=== PATIENT | male | born 1995 | race Caucasian/White ===

== ENCOUNTER 2022-05-27 03:37 | Observation (INO) ==
[2022-05-27] MEDS ORDERED: SODIUM CHLORIDE 0.9% 1,000 ML IV STA (04:13)
[2022-05-27 04:19] LABS: Basophils # 0.1 10*3/uL (0.0-0.2); Basophils % 0.4 % (0.0-0.8); Eosinophils # 0.2 10*3/uL (0.0-0.87); Eosinophils % 1.4 % (0.00-10.9); Hematocrit 48.2 VOL% (42.0-52.0); Immature Granulocytes % 0.4 %; Immature Granulocytes Absolute 0.05 #; Lymphocytes # 1.6 10*3/uL (1.4-4.0); Lymphocytes % 11.6 % (21.2-54.2); Mean Corpuscular HGB Conc 33.2 GM/DL (32-36); Mean Corpuscular Volume 89.4 FL (87-102); Mean Platelet Volume 10.4 FL (9.6-12.0); Monocytes # 0.9 10*3/uL (0.11-0.8); Neutrophils % 79.2 % (38.7-73.9); Platelet Count 186 T/CUMM (130-400); Red Blood Count 5.39 MC/CUMM (3.8-5.5); Red Cell Distribution Width 12.3 % (9.3-17.3); White Blood Count 13.4 T/CUMM (4-12)
[2022-05-27] MEDS ORDERED: PIPERACILLIN/TAZOBACTAM 3,375 MG in SODIUM CHLORIDE 0.9% 100 ML IV STA (04:56)
[2022-05-27 05:45] LABS: Albumin 3.8 G/DL (3.4-5.0); Bilirubin,Total 0.8 MG/DL (0.20-1.00); Calcium 9.1 MG/DL (8.5-10.1); Osmolality,Calculated 281.3 MOS/KG (273-304); Potassium 3.8 MMOL/L (3.5-5.1); Total Protein 7.3 G/DL (6.4-8.2)
[2022-05-27] MEDS ORDERED: ONDANSETRON 4 MG/2 ML VIAL IV PRN ×2 (05:48→08:39)
[2022-05-27] MEDS ORDERED: LACTATED RINGERS 1,000 ML IV SCH (06:30)
[2022-05-27] MEDS ORDERED: DEXAMETHASONE 4 MG/1 ML VIAL ONE (07:05)
[2022-05-27] MEDS ORDERED: MIDAZOLAM 2 MG/2 ML VIAL ONE (07:05)
[2022-05-27] MEDS ORDERED: ROCURONIUM 50 MG/5 ML VIAL IV ONE (07:05)
[2022-05-27] MEDS ORDERED: fentaNYL 100 MCG/2 ML VIAL ONE (07:05)
[2022-05-27] MEDS ORDERED: LIDOCAINE 2% 5 ML VIAL ONE (07:05)
[2022-05-27] MEDS ORDERED: propofoL 200 MG/20 ML VIAL IV ONE (07:05)
[2022-05-27] MEDS ORDERED: ONDANSETRON 4 MG/2 ML VIAL ONE ×2 (07:05→08:22)
[2022-05-27] MEDS ORDERED: SUCCINYLCHOLINE 200 MG/10 ML VIAL ONE (07:05)
[2022-05-27] MEDS ORDERED: BUPIVACAINE MPF 0.25% 10 ML VIAL ONE (07:23)
[2022-05-27] MEDS ORDERED: TISSUE ADHESIVE 1 EACH APPLICATOR TOP ONE (07:23)
[2022-05-27] MEDS ORDERED: LIDOCAINE 1%/EPI INJ 20 ML VIAL ONE (07:23)
[2022-05-27] MEDS ORDERED: GLYCOPYRROLATE 0.4 MG/2 ML VIAL ONE (07:47)
[2022-05-27] MEDS ORDERED: SEVOFLURANE 1 UNIT/15 MINUTE INH ONE (07:47)
[2022-05-27] MEDS ORDERED: NEOSTIGMINE 10 MG/10 ML VIAL ONE (07:47)
[2022-05-27] MEDS ORDERED: MEPERIDINE 25 MG/1 ML VIAL ONE (08:22)
[2022-05-27] MEDS ORDERED: MEPERIDINE 25 MG/1 ML VIAL IV PRN (08:39)
[2022-05-27 12:07] VITALS: BP 106/72
== END 2022-05-27 13:58 | disposition home or self-care (01) ==
LOC: N.EDINP 03:37 → N.ED 03:37 → N.3E 07:11
PROVIDERS: ADMIT Surgery; ATTEND Surgery